=== PATIENT | female | born 1925 | race Caucasian/White ===

== ENCOUNTER 2017-03-19 10:03 | Emergency (ER) | payer MEDICARE, OTHER ==
--- NOTE | 2017-03-19 11:24 | EDM.PDOC ---
ED HPI GENERAL MEDICAL PROBLEM - General Chief Complaint: Upper Extremity Injury/Pain Stated Complaint: ARM AND UNDER ARM SWOLLEN Time Seen by Provider: 03/19/17 10:28 Source of Information: Reports: Patient, Family, RN Notes Reviewed - History of Present Illness INITIAL COMMENTS - FREE TEXT/NARRATIVE: 89-year-old female comes in with an area of increased erythema right upper chest , increased swelling of her right upper and lower arm. She does have history of breast cancer with right mastectomy about 15 years ago. She has history of chronic right upper extremity lymphedema. 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 That has been treated with radiation therapy. Several months ago she has had recurrence of skin redness rash and swelling of the right superior and anterior shoulder. That was just biopsied a week or 2 ago at the clinic. Her oncologist has told family that this also is "recurrent cancer". Patient has not fallen or injured her arm or shoulder that we are aware of. She does have some dementia so was not able to give totally accurate history. Most of the history I am obtaining comes from her 2 sons that are here with her here in the ED at this time. She has no chest pain or difficulty breathing. She Was having increased pain of the right arm this morning but after a warm compress the pain has gone away. She denies numbness or tingling of the hand or fingers. There has been no recent fever or chills. - Related Data Allergies Allergy/AdvReac Type Severity Reaction Status Date / Time No Known Allergies Allergy Verified 03/19/17 10:16 Home Meds: Home Meds Acetaminophen 650 mg PO TID 03/19/17 [History] Anastrozole [Arimidex] 1 mg PO DAILY 03/19/17 [History] Aspirin [Halfprin] 81 mg PO DAILY 03/19/17 [History] Calamine/Zinc Oxide [Calamine Lotion] 1 applic TOP BID 03/19/17 [History] Calcium Carbonate/Vitamin D3 [Calcium Carb 500 MG] 500 mg PO DAILY 03/19/17 [ History] Donepezil HCl [Aricept] 10 mg PO BEDTIME 03/19/17 [History] Ferrous Sulfate 325 mg PO MOWEFR 03/19/17 [History] Furosemide [Lasix] 60 mg PO DAILY 03/19/17 [History] Hydrocodone/Acetaminophen [Hydrocodon-Acetaminophen 5-325] 1 tab PO Q4H PRN [History] Hydrocortisone [Hydrocortisone 1% Lotion] 1 applic TOP DAILY PRN 03/19/17 [ History] Latanoprost [Xalatan 0.005% Ophth Soln] 1 drop EYEBOTH BEDTIME 03/19/17 [History ] Lisinopril [Prinivil] 5 mg PO BID 03/19/17 [History] Memantine HCl [Namenda] 10 mg PO BEDTIME 03/19/17 [History] Multivitamin with Iron [Multivitamins with Iron] 1 tab PO DAILY 03/19/17 [ History] Potassium Chloride [Klor-Con M20] 20 meq PO DAILY 03/19/17 [History] atorvaSTATin [Lipitor] 40 mg PO DAILY 03/19/17 [History] traMADol [Ultram] 50 mg PO BID 03/19/17 [History] Past Medical History Cardiovascular History: Reports: High Cholesterol, Hypertension, [place] Neurological History: Reports: Alzheimers Disease, TIA Oncologic (Cancer) History: Reports: Breast - Past Surgical History Cardiovascular Surgical History: Reports: Coronary Artery Bypass GI Surgical History: Reports: Appendectomy Female Surgical History: Reports: Hysterectomy, Mastectomy Oncologic Surgical History: Reports: Mastectomy Social & Family History - Tobacco Use Smoking Status *Q: Never Smoker Second Hand Smoke Exposure: No - Caffeine Use Caffeine Use: Reports: None - Alcohol Use Days Per Week of Alcohol Use: 0 - Recreational Drug Use Recreational Drug Use: No Review of Systems - Review of Systems Review Of Systems: See Below Constitutional: Denies: Chills, Fever Eyes: Reports: No Symptoms Nose: Reports: No Symptoms Mouth/Throat: Reports: No Symptoms Respiratory: Denies: Shortness of Breath Cardiovascular: Denies: Chest Pain GI/Abdominal: Denies: Abdominal Pain, Nausea, Vomiting Musculoskeletal: Reports: Arm Pain, Other (There is some increased swelling of the right upper arm and forearm. She was having increased pain of the forearm earlier this morning. The pain is now gone.). Denies: Shoulder Pain Skin: Reports: Rash, Erythema (She is rash of the superior and posterior right shoulder. There is an area of swelling and erythema right upper anterior chest) Neurological: Denies: Dizziness, Headache, Numbness, Tingling, Weakness, Change in Speech ED EXAM, GENERAL - Physical Exam Exam: See Below General Appearance: Alert, No Apparent Distress Eye Exam: Bilateral Eye: PERRL Throat/Mouth: Normal Inspection, Normal Oropharynx Head: Atraumatic. No: Facial Swelling Neck: Supple, Full Range of Motion Respiratory/Chest: No Respiratory Distress, Lungs Clear, Normal Breath Sounds Cardiovascular: Regular Rate, Rhythm GI/Abdominal: Soft, Non-Tender Extremities: Redness (There is an area of erythema right upper anterior chest about 3-4 cm in diameter with mild localized swelling), Other (Moderate increased swelling of the right upper arm and also right forearm, shoulder and elbow nontender, good range of motion, no visible deformity.). No: Pedal Edema , Arm Pain, Leg Pain Neurological: No Motor/Sensory Deficits, Other (Good motor function of the right hand and distal sensation also intact) Skin Exam: Warm, Dry, Rash (There is some mildly raised rash of the right anterior and posterior trunk medial to the right shoulder, very slight erythematous rash of the right upper arm) Course - Vital Signs Last Recorded V/S: Last Vital Signs Temp 97.4 F 03/19/17 10:13 Pulse 86 03/19/17 10:13 Resp 16 03/19/17 10:13 BP 107/60 03/19/17 10:13 Pulse Ox 96 03/19/17 10:13 - Orders/Labs/Meds Labs: Laboratory Tests 03/19/17 03/19/17 Range/Units 11:07 11:07 WBC 7.21 (3.98-10.04) K/mm3 RBC 3.96 L (3.98-5.22) M/mm3 Hgb 12.3 (11.2-15.7) gm/L Hct 37.8 (34.1-44.9) % MCV 95.5 H (79.4-94.8) fl MCH 31.1 (25.6-32.2) pg MCHC 32.5 (32.2-35.5) g/dl RDW Std Deviation 44.8 (36.4-46.3) fL Plt Count 218 (182-369) K/mm3 MPV 9.4 (9.4-12.3) fl Neut % (Auto) 81.4 H (34.0-71.1) % Lymph % (Auto) 7.8 L (19.3-51.7) % Mccreary % (Auto) 9.7 (4.7-12.5) % Eos % (Auto) 0.7 (0.7-5.8) Baso % (Auto) 0.1 (0.1-1.2) % Neut # (Auto) 5.87 (1.56-6.13) K/mm3 Lymph # (Auto) 0.56 L (1.18-3.74) K/mm3 Mccreary # (Auto) 0.70 H (0.24-0.36) K/mm3 Eos # (Auto) 0.05 (0.04-0.36) K/mm3 Baso # (Auto) 0.01 (0.01-0.08) K/mm3 Manual Slide Review Normal smear Sodium 139 (136-145) mEq/L Potassium 4.1 (3.5-5.1) mEq/L Chloride 101 (98-107) mEq/L Carbon Dioxide 32 (21-32) mEq/L Anion Gap 10.1 (5-15) BUN 21 H (7-18) mg/dL Creatinine 1.0 (0.55-1.02) mg/dL Est Cr Clr Drug Dosing TNP Estimated GFR (MDRD) 52 (>60) mL/min BUN/Creatinine Ratio 21.0 H (14-18) Glucose 134 H (83-115) mg/dL Calcium 9.4 (8.5-10.1) mg/dL Total Bilirubin 0.6 (0.2-1.0) mg/dL AST 19 (15-37) U/L ALT 19 (14-59) U/L Alkaline Phosphatase 100 (46-116) U/L Total Protein 6.4 (6.4-8.2) g/dl Albumin 2.8 L (3.4-5.0) g/dl Globulin 3.6 gm/dL Albumin/Globulin Ratio 0.8 L (1-2) - Re-Assessments/Exams Free Text/Narrative Re-Assessment/Exam: 03/19/17 12:55. White blood count did come back normal. Chemistries were relatively normal. She continues to have no upper or forearm discomfort while here in the ED. I did discuss with patient and her 2 sons present about working with increased elevation over the weekend. I am going to start her on cephalexin for possible cellulitis of the right upper chest area. Using that this also may be a manifestation of reoccurring breast cancer. We also did discuss getting physical therapy involved again to work with the lymphedema. An order for that has been provided to family. Discharge instructions as documented. Departure - Departure Time of Disposition: 12:13 Disposition: Home, Self-Care 01 Condition: Fair Clinical Impression: Lymphedema Cellulitis Qualifiers: Site of cellulitis of trunk: chest wall - Discharge Information Instructions: Cellulitis, Adult, Lymphedema Referrals: Jose J Wilburn MD [Primary Care Provider] - Forms: ED Department Discharge Additional Instructions: Try elevate arm with an extra pillow or 2 as much as you can, continue to use arm sleeve for compression to arm as tolerated. Cephalexin antibiotic 500 mg 3 times daily for 1 week or until gone, an order for physical therapy for further evaluation and treatment of lymphedema right arm has been provided, follow-up with Dr. Wilburn next week, call Tuesday morning for appointment, return to ED if symptoms worsening in any way.
== END 2017-03-19 12:30 | disposition home or self-care (01) ==
LOC: JD.ED 10:03
DX: L03.313 Cellulitis of chest wall (principal); I89.0 Lymphedema, not elsewhere classified; I10 Essential (primary) hypertension; I25.2 Old myocardial infarction; E78.00 Pure hypercholesterolemia, unspecified; Z79.82 Long term (current) use of aspirin; Z79.899 Other long term (current) drug therapy; Z86.73 Personal history of transient ischemic attack (TIA), and cerebral infarction without residual deficits; Z95.1 Presence of aortocoronary bypass graft
CPT/HCPCS: 36415; 80053; 85025; 99283

== ENCOUNTER 2017-05-04 12:34 | Emergency (ER) | payer MEDICARE, OTHER ==
[2017-05-04] MEDS ORDERED: Sodium Chloride 0.9% 10 ML Syringe FLUSH PRN (12:49)
[2017-05-04] MEDS ORDERED: Albuterol/Ipratropium 3.0-0.5 MG/3 ML Neb Soln NEB ONE (12:49)
[2017-05-04] MEDS ORDERED: Aspirin 325 MG Tab.EC PO ONE (12:49)
--- NOTE | 2017-05-04 12:51 | EDM.PDOC ---
ED HPI GENERAL MEDICAL PROBLEM - General Chief Complaint: Chest Pain Stated Complaint: SOB/CHEST PAIN Time Seen by Provider: 05/04/17 12:35 Source of Information: Reports: Patient History Limitations: Reports: No Limitations - History of Present Illness INITIAL COMMENTS - FREE TEXT/NARRATIVE: 89 year old female presents for evaluation and treatment of chest pain and shortness of breath. Patient is pleasantly demented and is unable to provide a reliable history. Patient currently denies any nausea, vomiting, dizziness, diaphoresis, back pain, arm pain or neck pain. Identifies pain in the right anterior chest and shortness of breath. Patient is tachypnic upon arrival. Patient has an erytheamtous rash to the right anterior chest extending over the shoulder and towards the right neck and back. States the rash" comes and goes". Nursing staff contacted [facility]. States she has been declining over the last few months. Reportedly she developed chest pain and shortness of breath while eating lunch today. States she is not normally incontinent of bowel and bladder but has recently become so. Son is present and states she is incontinent of bowel and bladder. Reports the erythematous rash to the right anterior chest is cancer. States he has been working with oncology but they feel she would not benefit from further intervention and recommend no further chemo or radiation. Patient has a history of breast. Has a right masectomy. Right Chest Pain Score (Numeric/FACES): 3 - Related Data Allergies Allergy/AdvReac Type Severity Reaction Status Date / Time No Known Allergies Allergy Verified 03/19/17 10:16 Home Meds: Home Meds Acetaminophen 650 mg PO TID 03/19/17 [History] Anastrozole [Arimidex] 1 mg PO DAILY 03/19/17 [History] Aspirin [Halfprin] 81 mg PO DAILY 03/19/17 [History] Calamine/Zinc Oxide [Calamine Lotion] 1 applic TOP BID 03/19/17 [History] Calcium Carbonate/Vitamin D3 [Calcium Carb 500 MG] 500 mg PO DAILY 03/19/17 [ History] Donepezil HCl [Aricept] 10 mg PO BEDTIME 03/19/17 [History] Ferrous Sulfate 325 mg PO MOWEFR 03/19/17 [History] Furosemide [Lasix] 60 mg PO DAILY 03/19/17 [History] Hydrocortisone [Hydrocortisone 1% Lotion] 1 applic TOP DAILY PRN 03/19/17 [ History] Latanoprost [Xalatan 0.005% Ophth Soln] 1 drop EYEBOTH BEDTIME 03/19/17 [History ] Lisinopril [Prinivil] 5 mg PO BID 03/19/17 [History] Memantine HCl [Namenda] 10 mg PO BEDTIME 03/19/17 [History] Multivitamin with Iron [Multivitamins with Iron] 1 tab PO DAILY 03/19/17 [ History] Potassium Chloride [Klor-Con M20] 20 meq PO DAILY 03/19/17 [History] atorvaSTATin [Lipitor] 40 mg PO DAILY 03/19/17 [History] traMADol [Ultram] 50 mg PO BID 03/19/17 [History] Past Medical History Cardiovascular History: Reports: High Cholesterol, Hypertension, [place] Neurological History: Reports: Alzheimers Disease, TIA Oncologic (Cancer) History: Reports: Breast - Past Surgical History Cardiovascular Surgical History: Reports: Coronary Artery Bypass GI Surgical History: Reports: Appendectomy Female Surgical History: Reports: Hysterectomy, Mastectomy Oncologic Surgical History: Reports: Mastectomy Social & Family History - Tobacco Use Smoking Status *Q: Never Smoker Second Hand Smoke Exposure: No - Caffeine Use Caffeine Use: Reports: None - Alcohol Use Days Per Week of Alcohol Use: 0 - Recreational Drug Use Recreational Drug Use: No ED ROS GENERAL - Review of Systems Review Of Systems: See Below Constitutional: Denies: Fever, Diaphoresis Respiratory: Reports: Shortness of Breath. Denies: Cough Cardiovascular: Reports: Chest Pain GI/Abdominal: Denies: Abdominal Pain, Nausea, Vomiting Musculoskeletal: Denies: Neck Pain, Arm Pain, Back Pain Skin: Reports: Rash (right anterior chest and right trap) Neurological: Denies: Dizziness ED EXAM, GENERAL - Physical Exam Exam: See Below Exam Limited By: Other (pleasently demented) General Appearance: Alert, WD/WN, Mild Distress (tachypnic ), Obese Eye Exam: Bilateral Eye: Normal Inspection Respiratory/Chest: Lungs Clear, Normal Breath Sounds, Other (tachypnic; right sided masectomy; edema to the bilteral arms ) Cardiovascular: Normal Peripheral Pulses, Regular Rate, Rhythm, No Murmur GI/Abdominal: Soft, Non-Tender Extremities: Pedal Edema Neurological: Alert, Confused (pleasently demented) Psychiatric: Normal Affect, Normal Mood Skin Exam: Warm, Dry, Erythema (erythematous rash to the right anterior chest, nack and superior back - reporedly cancer per her son) EKG INTERPRETATION EKG Date: 05/05/17 Time: 12:45 Rhythm: NSR Rate (Beats/Min): 88 [place]acket: Normal P-Wave: Present QRS: Normal ST-T: Normal QT: Normal EKG Interpretation Comments: NSR at 88 bpm. PVCs. Q waaves in II, III and AVF. No acute changes. Reviewed by myself and Dr. briscoe Course - Vital Signs Last Recorded V/S: Last Vital Signs Temp 36.4 C 05/04/17 12:45 Pulse 88 05/04/17 12:45 Resp 26 H 05/04/17 12:45 BP 112/75 05/04/17 12:45 Pulse Ox 95 05/04/17 12:45 - Orders/Labs/Meds Labs: Laboratory Tests 05/04/17 05/04/17 05/04/17 Range/Units 14:10 16:00 16:00 WBC 7.69 (3.98-10.04) K/mm3 RBC 4.04 (3.98-5.22) M/mm3 Hgb 12.3 (11.2-15.7) gm/L Hct 37.8 (34.1-44.9) % MCV 93.6 (79.4-94.8) fl MCH 30.4 (25.6-32.2) pg MCHC 32.5 (32.2-35.5) g/dl RDW Std Deviation 46.6 H (36.4-46.3) fL Plt Count 227 (182-369) K/mm3 MPV 9.6 (9.4-12.3) fl Neutrophils % (Manual) 78 H (40-60) % Band Neutrophils % 0 (0-10) % Lymphocytes % (Manual) 12 L (20-40) % Atypical Lymphs % 1 % Monocytes % (Manual) 8 (2-10) % Eosinophils % (Manual) 1 (0.7-5.8) % Basophils % (Manual) 0 L (0.1-1.2) Platelet Estimate Adequate Plt Morphology Comment Normal RBC Morph Comment Normal PT 10.1 (8.0-13.0) SECONDS INR 0.93 APTT 25 (22-36) SECONDS D-Dimer, Quantitative 0.79 H (0.19-0.59) mg/L Sodium (136-145) mEq/L Potassium (3.5-5.1) mEq/L Chloride (98-107) mEq/L Carbon Dioxide (21-32) mEq/L Anion Gap (5-15) BUN (7-18) mg/dL Creatinine (0.55-1.02) mg/dL Est Cr Clr Drug Dosing mL/min Estimated GFR (MDRD) (>60) mL/min BUN/Creatinine Ratio (14-18) Glucose (83-115) mg/dL Calcium (8.5-10.1) mg/dL Total Bilirubin (0.2-1.0) mg/dL AST (15-37) U/L ALT (14-59) U/L Alkaline Phosphatase (46-116) U/L CK-MB (CK-2) 0.6 (0-3.6) ng/ml Troponin I 0.024 (0.00-0.056) ng/mL NT-Pro-B Natriuret Pep 2071 H (0-450) pg/mL Total Protein (6.4-8.2) g/dl Albumin (3.4-5.0) g/dl Globulin gm/dL Albumin/Globulin Ratio (1-2) 05/04/17 05/04/17 Range/Units 16:00 20:00 WBC (3.98-10.04) K/mm3 RBC (3.98-5.22) M/mm3 Hgb (11.2-15.7) gm/L Hct (34.1-44.9) % MCV (79.4-94.8) fl MCH (25.6-32.2) pg MCHC (32.2-35.5) g/dl RDW Std Deviation (36.4-46.3) fL Plt Count (182-369) K/mm3 MPV (9.4-12.3) fl Neutrophils % (Manual) (40-60) % Band Neutrophils % (0-10) % Lymphocytes % (Manual) (20-40) % Atypical Lymphs % % Monocytes % (Manual) (2-10) % Eosinophils % (Manual) (0.7-5.8) % Basophils % (Manual) (0.1-1.2) Platelet Estimate Plt Morphology Comment RBC Morph Comment PT (8.0-13.0) SECONDS INR APTT (22-36) SECONDS D-Dimer, Quantitative (0.19-0.59) mg/L Sodium 138 (136-145) mEq/L Potassium 4.3 (3.5-5.1) mEq/L Chloride 99 (98-107) mEq/L Carbon Dioxide 29 (21-32) mEq/L Anion Gap 14.3 (5-15) BUN 33 H (7-18) mg/dL Creatinine 1.0 (0.55-1.02) mg/dL Est Cr Clr Drug Dosing 27.39 mL/min Estimated GFR (MDRD) 52 (>60) mL/min BUN/Creatinine Ratio 33.0 H (14-18) Glucose 111 (83-115) mg/dL Calcium 9.6 (8.5-10.1) mg/dL Total Bilirubin 0.6 (0.2-1.0) mg/dL AST 21 (15-37) U/L ALT 20 (14-59) U/L Alkaline Phosphatase 124 H (46-116) U/L CK-MB (CK-2) (0-3.6) ng/ml Troponin I 0.035 (0.00-0.056) ng/mL NT-Pro-B Natriuret Pep (0-450) pg/mL Total Protein 7.1 (6.4-8.2) g/dl Albumin 3.1 L (3.4-5.0) g/dl Globulin 4.0 gm/dL Albumin/Globulin Ratio 0.8 L (1-2) Meds: Medications Discontinued Medications Generic Name Dose Route Start Last Admin Trade Name Freq PRN Reason Stop Dose Admin Albuterol/Ipratropium 3 ml 05/04/17 12:49 05/04/17 12:50 Duoneb 3.0-0.5 Mg/3 Ml NEB 05/04/17 12:50 3 ml ONETIME ONE Administration Albuterol/Ipratropium Confirm 05/04/17 12:52 05/04/17 13:30 Duoneb 3.0-0.5 Mg/3 Ml Administered 05/04/17 12:53 Not Given Dose 3 ml .ROUTE .STK-MED ONE Aspirin 325 mg 05/04/17 12:49 05/04/17 12:56 Ecotrin PO 05/04/17 12:50 325 mg ONETIME ONE Administration Sodium Chloride 250 mls @ 250 mls/hr 05/04/17 14:21 05/04/17 15:28 Normal Saline IV 05/04/17 15:20 Infused ONETIME ONE Infusion Sodium Chloride 1,000 mls @ 100 mls/hr 05/04/17 14:22 Normal Saline IV 05/05/17 00:21 ONETIME ONE Sodium Chloride Confirm 05/04/17 14:28 05/04/17 14:27 Normal Saline Administered 05/04/17 14:29 Not Given Dose 1,000 mls @ as directed .ROUTE .STK-MED ONE Sodium Chloride 100 mls @ 60 mls/hr 05/04/17 18:00 Normal Saline IV ASDIRECTED OPAL Iopamidol 100 ml 05/04/17 17:52 Isovue-370 (76%) IVPUSH 05/04/17 17:53 ONETIME ONE Sodium Chloride 10 ml 05/04/17 12:49 Saline Flush FLUSH ASDIRECTED PRN Keep Vein Open Sodium Chloride 10 ml 05/04/17 17:52 Saline Flush FLUSH 05/04/17 17:53 ONETIME ONE - Radiology Interpretation Free Text/Narrative:: chest xray shows cardiomegaly. No acute intrathoracic process - Re-Assessments/Exams Free Text/Narrative Re-Assessment/Exam: 05/04/17 17:30 d-dimer returned elevated at 0.79. Given her age this is likely within normal limits for her. Will obtain CT pulmonary angiogram to rule out PE. trop is within normal limits at 0.024 BNP elevated at 2071 Tachypnea improved after duoneb. No current chest pain or shortness of breath. Patient is resting comfortably. 05/04/17 21:30 repeat trop returned within normal limits at 0.035 After multiple attempts by nursing staff and anesthesia, IV to the left arm blew 3 times. Unable to obtain CT pulmonary angiogram. Her tachypnia resolved after the duoneb and she has not had any additional chest pain or shortness of breath since entering the ER. I have a low suspicion for PE. Plan will be to send her home tonight. Her and her son have talked with social work about steps to take to get her into a higher level of care. Will have her come back tomorrow for a VQ scan and follow-up with her PCP. 05/05/17 15:11 Reviewed VQ scan done this morning. Report is low probability for PE. Departure - Departure Time of Disposition: 21:30 Disposition: Home, Self-Care 01 Condition: Good Clinical Impression: Dementia, Lymphedema, Metastatic breast cancer, Elevated d-dimer Referrals: Jose J Wilburn MD [Primary Care Provider] - Forms: ED Department Discharge Additional Instructions: Call tomorrow to schedule the VQ scan. Call [phone] and ask for the radiology department to schedule the VQ scan. Follow-up with Dr. Wilburn this week or next week. Please return to the ER if her symptoms change or worsen.
[2017-05-04] MEDS ORDERED: Albuterol/Ipratropium 3.0-0.5 MG/3 ML Neb Soln ONE (12:52)
[2017-05-04] MEDS ORDERED: Sodium Chloride 0.9% 250 ML IV ONE (14:21)
[2017-05-04] MEDS ORDERED: Sodium Chloride 0.9% 1,000 ML IV ONE (14:22)
[2017-05-04] MEDS ORDERED: Sodium Chloride 0.9% 1,000 ML ONE (14:28)
[2017-05-04] MEDS ORDERED: Sodium Chloride 0.9% 10 ML Syringe FLUSH ONE (17:52)
[2017-05-04] MEDS ORDERED: Iopamidol 755 Mg/ML 100 ML Bottle IVPUSH ONE (17:52)
[2017-05-04] MEDS ORDERED: Sodium Chloride 0.9% 100 ML IV SCH (18:00)
--- NOTE | 2017-05-04 20:24 | PCM.SN ---
- Free Text/Narrative Note: Called to the ER for a difficult IV start. Patient has a previous large infiltration of her AC IV. 20 Gauge 1.88 IV inserted with one attempt using ultrasound in her upper arm on the left side. Blood return noted, flushes with ease. Only her left arm is able to be utilized for an IV.
--- NOTE | 2017-05-05 08:06 | CR ---
Chest: Portable view of the chest was obtained. Comparison: No prior chest x-ray, prior chest CT of 07/21/16 is available. Heart is enlarged. Sternotomy is noted for prosthetic heart valve. Lungs are clear. Bony structures are osteopenic. Mild degenerative change is present within the shoulders. Mild scoliosis is noted. Impression: 1. Cardiomegaly and other incidental findings. 2. Nothing acute is identified on portable chest x-ray. Diagnostic code #2
== END 2017-05-04 21:46 | disposition home or self-care (01) ==
LOC: JD.ED 12:34
DX: F03.90 Unspecified dementia, unspecified severity, without behavioral disturbance, psychotic disturbance, mood disturbance, and anxiety (principal); I89.0 Lymphedema, not elsewhere classified; C79.81 Secondary malignant neoplasm of breast; R79.89 Other specified abnormal findings of blood chemistry; I10 Essential (primary) hypertension; E78.00 Pure hypercholesterolemia, unspecified; Z79.82 Long term (current) use of aspirin; Z79.899 Other long term (current) drug therapy
CPT/HCPCS: 36415; 71010; 80053; 82553; 83880; 84484; 85025; 85379; 85610; 85730; 93005; 94640; 99285; A9270; J7040; 93010